=== PATIENT | male | born 1985 | race Caucasian/White ===

== ENCOUNTER 2022-02-25 16:55 | Emergency (ER) | payer SELFPAY ==
--- NOTE | 2022-02-25 17:13 | ER ---
Nurse's Notes [facility] Name: Santiago Jensen Age: 36 yrs Sex: Male : 1985 Arrival Date: 02/25/2022 Time: 16:57 Bed 2 Private MD: Diagnosis: Acute respiratory failure;Poisoning by other drugs, medicaments and biological substances, accidental (unintentional);Acidosis;Respiratory failure, unspecified with hypercapnia;Elevated white blood cell count;Acute kidney failure, unspecified;Hypokalemia Presentation: 02/25 16:51 Chief complaint: EMS states: family called for an overdose. Pt was found unresponsive ss at home by family, unknown as to what patient actually took. Narcan 1 mg given intranasally with no improvement. Additional Narcan 2 mg given IVP also without change. RSI initiated (Etomidate 20 mg, Rocuronium 75 mg IVP) and patient successfully intubated with 7.0 ET tube. Coronavirus screen: Client denies travel out of the [place] in the last 14 days. Ebola Screen: Patient denies exposure to infectious person. Patient denies travel to an Ebola-affected area in the 21 days before illness onset. Initial Sepsis Screen: Does the patient meet any 2 criteria? No. Patient's initial sepsis screen is negative. Does the patient have a suspected source of infection? No. Patient's initial sepsis screen is negative. Risk Assessment: Do you want to hurt yourself or someone else? Patient reports no desire to harm self or others. Onset of symptoms is unknown. Care prior to arrival: Oral airway placed, IV initiated. 18 GA, in the left antecubital area, Glucose check: 190 Oxygen administered. via AMBU bag. Activity prior to arrival: unresponsive. 16:51 Method Of Arrival: EMS: [facility] 16:51 Acuity: JUANY 1 ss Triage Assessment: 17:15 General: Appears in no apparent distress. jg9 17:15 General: Behavior is unresponsive. Pain: Unable to use pain scale. Patient is jg9 intubated. EENT: vomitus noted in mouth and nose. Neuro: Level of Consciousness is unresponsive. Cardiovascular: Rhythm is sinus rhythm. Respiratory: intubated 7.0 by ems. GI: vomitus noted in nose mouth and all over body. : No deficits noted. Derm: No deficits noted. Musculoskeletal: No deficits noted. Historical: - Allergies: 17:04 No Known Allergies; ss - PMHx: 17:04 Colitis; Gastroenteritis; Hernia; "mental issues"; ss - PSHx: 17:06 None; ss - Immunization history:: Adult Immunizations unknown. - Social history:: Smoking status: unknown. - Family history:: not pertinent. Screenin:27 Abuse screen: unable to complete. Nutritional screening: unable to complete. ss Tuberculosis screening:. 17:30 Fall Risk None identified. jg9 Assessment: 16:51 General: Behavior is unresponsive. Pain: Unable to use pain scale. Patient is ss unresponsive. Neuro: [place] Agitation-Sedation Scale (RASS): -5 Unarousable Level of Consciousness is unresponsive, Oriented to none. Neuro: Pupils are reactive to light. Cardiovascular: Pulses are palpable in right radial artery, right femoral artery, left radial artery and left femoral artery. Respiratory: Airway via oral intubation Trachea midline Respiratory effort is even, Respiratory pattern is regular, symmetrical. GI: Abdomen is non-distended. Derm: Skin is dry, Skin is pink, Skin temperature is warm. 17:46 Reassessment: ET tube advanced from initial 21 cm \\T\\ teeth to 24 cm by RT as requested ss by Dr. Rashid. Repeat XRAY has been ordered. Preparing patient to go to CT at this time. 18:00 Reassessment: No changes from previously documented assessment. Patient and/or family jg9 updated on plan of care and expected duration. Pain level reassessed. Patient is alert, oriented x 3, equal unlabored respirations, skin warm/dry/pink. 19:10 Reassessment: report called to Renetta at [facility] ICU 825. jg9 Overdose: 19:12 [place] Suicide Severity Screening: "In the past month, have you wished you were jg9 or wished you could go to sleep and not wake up?" Patient responds "yes." Based off client's responses, additional C-SSRS screening questions required. unable to complete patient is intubated "In the past month, have you actually had any thoughts of killing yourself?" intubated "In your lifetime, have you ever done anything, started to do anything, or prepared to do anything to end your life?" intubated. 19:25 [place] Suicide Severity Screening: "In the past month, have you actually had any jg9 thoughts of killing yourself?" Patient responds "yes." Based off client's responses, additional C-SSRS screening questions required. Vital Signs: 16:55 BP 154 / 107; Pulse 105; Resp 20; Temp 98.2(R); Pulse Ox 100% on 60% FiO2 ETT vent; ss 18:00 BP 155 / 108; Pulse 96; Pulse Ox 100% on ETT vent; jg9 18:11 Weight 77.11 kg; Height 6 ft. 1 in. (185.42 cm); jg9 18:58 BP 158 / 113; Pulse 98; Resp 20 A; Pulse Ox 100% on ETT vent; ss 19:00 BP 149 / 110; Pulse 96; Resp 20 A; Pulse Ox 100% on ETT vent; jg9 18:11 Body Mass Index 22.43 (77.11 kg, 185.42 cm) jg9 ED Course: 16:51 Arm band placed on right wrist. ss 16:57 Patient arrived in ED. keaton 16:57 Abel Rashid MD is Attending Physician. keaton 16:57 Maintain EMS IV. Dressing intact. Good blood return noted. Site clean \\T\\ dry. Gauge \\T\\ ss site: 18 gauge L AC. Flushed left antecubital. 17:05 Spaulding cath inserted, using sterile technique, 16 Fr., by me, balloon inflated, to ss gravity drainage, urine specimen collected. 17:10 NGT: inserted 16 Fr. via left nare. to intermittent suction. Returned gastric contents. ss 17:12 Triage completed. ss 17:14 XRAY Chest (1 view) In Process Unspecified. EDMS 17:27 Patient has correct armband on for positive identification. Placed in gown. Bed in low ss position. Call light in reach. Side rails up X2. Client placed on continuous cardiac and pulse oximetry monitoring. NIBP monitoring applied. resource program teacher on. Pulse ox on. Warm blanket given. 17:29 Joyce Medina, RN is Primary Nurse. jg9 17:43 initiated a transfer with URBAN Zimmer from the [facility] Transfer Center/ Scot DUGGAN all [facility] in our division is on ICU saturation and will have to decline the transfer. 17:45 initiated a transfer with Alejandro from the [facility] Transfer Center. She will check beds and eb call us back. 17:45 EKG done, by ED staff, reviewed by Abel Rashid MD. 3 17:46 Inserted saline lock: 18 gauge in right antecubital area, using aseptic technique. ss ,using aseptic technique. Insertion by Joyce Braga RN Blood collected. 17:[address] Harper the wood setter intervention teacher for [facility] with Dr. Rashid for patient eb transfer consultation. 17:[address] approval given to Dr. Rashid/ patient has been accepted to [facility] eb [facility] Bed 825/ Dr. Gil has accepted the patient in transfer/ report to be called to [phone]. 17:59 CT Head Brain wo Cont In Process Unspecified. EDMS 18:34 Chest Single View XRAY In Process Unspecified. EDMS 18:40 Inserted saline lock: 18 gauge in left forearm, using aseptic technique. jg9 20:14 No provider procedures requiring assistance completed. Patient transferred, IV remains kd3 in place. Administered Medications: 17:30 Drug: NS 0.9% 1000 ml Route: IV; Rate: 1000 ml; Site: left antecubital; jg9 18:57 Follow up: IV Status: Completed infusion; IV Intake: 1000ml jg9 17:35 Drug: Versed (midazolam) 4 mg Route: IVP; Site: left antecubital; jg9 19:23 Follow up: Response: No adverse reaction; RASS: Moderate sedation (-3) jg9 20:15 Follow up: Response: No adverse reaction kd3 17:40 Drug: Propofol 5 mcg/kg/min {Note: initiated at 15mcg/kg/min.} Route: IV; Rate: jg9 calculated rate; Site: right antecubital; 20:15 Follow up: IV Status: Infusion continued kd3 18:05 Drug: Charcoal (activated charcoal) Suspension 75 grams Route: PO; jg9 19:23 Follow up: Response: No adverse reaction jg9 20:15 Follow up: Response: No adverse reaction kd3 18:40 Drug: Zosyn (piperacillin-tazobactam) 3.375 grams Route: IVPB; Infused Over: 60 mins; jg9 Site: left forearm; 18:55 Drug: NS 0.9% 1000 ml Route: IV; Rate: 1 bolus; Site: left forearm; jg9 20:15 Follow up: Response: No adverse reaction; IV Status: Completed infusion kd3 19:04 Drug: Thiamine 100 mg Route: IV; Rate: per protocol; Site: left forearm; jg9 19:23 Follow up: Response: No adverse reaction jg9 20:14 Follow up: Response: No adverse reaction; IV Status: Completed infusion kd3 Medication: 17:21 VIS not applicable for this client. ss Intake: 18:57 IV: 1000ml; Total: 1000ml. jg9 Outcome: 17:12 ER care complete, transfer ordered by MD. pugh 20:14 Transferred by ground EMS kd3 20:14 Condition: stable 20:14 Discharge instructions given to patient, family, Instructed on the need for transfer, Demonstrated understanding of instructions. 20:15 Patient left the ED. kd3 Signatures: Dispatcher [employer] EDAbel Caraballo MD MD cha Smirch, Shelby, RN RN Yohana Pineda [facility] Nessa Hunter Kyli RN RN kd3 Joyce Medina RN RN jg9 Corrections: (The following items were deleted from the chart) 18:58 17:46 Reassessment: ET tube advanced from initial 21 cm \\T\\ teeth to 24 cm by RT as ss requested by Dr. Rashid
--- NOTE | 2022-02-25 17:13 | EDPHYS ---
Physician Documentation [facility] Name: Santiago Jensen Age: 36 yrs Sex: Male : 1985 Arrival Date: 02/25/2022 Time: 16:57 Bed 2 Private MD: ED Physician Abel Rashid HPI: 02/25 17:04 This 36 yrs old Male presents to ER via Unassigned with complaints of keaton Overdose. 17:04 The patient has shortness of breath. The patient has shortness of breath UNRESPONSIVE keaton AND AIRWAY NOT PROTECTED. Onset: The symptoms/episode began/occurred just prior to arrival. Duration: The symptoms are continuous, and are unchanged since they started. The patient's shortness of breath is aggravated by nothing, is alleviated by nothing. The patient presents to the emergency department after a known overdose. Context: Method: UNKNOWN. Associated signs and symptoms: The patient has no apparent associated signs or symptoms. Severity of symptoms: At their worst the symptoms were mild in the emergency department the symptoms are unchanged. Associated signs and symptoms: Pertinent positives: RESPIRATORY FAILURE. Historical: - Allergies: 17:04 No Known Allergies; ss - PMHx: 17:04 Colitis; Gastroenteritis; Hernia; "mental issues"; ss - PSHx: 17:06 None; ss - Immunization history:: Adult Immunizations unknown. - Social history:: Smoking status: unknown. - Family history:: not pertinent. ROS: 17:04 Constitutional: Negative for fever, chills, and weight loss, Eyes: Negative for injury, keaton pain, redness, and discharge, ENT: Negative for injury, pain, and discharge, Neck: Negative for injury, pain, and swelling, Cardiovascular: Negative for chest pain, palpitations, and edema, Respiratory: Negative for shortness of breath, cough, wheezing, and pleuritic chest pain, Abdomen/GI: Negative for abdominal pain, nausea, vomiting, diarrhea, and constipation, Back: Negative for injury and pain, : Negative for injury, bleeding, discharge, and swelling, MS/Extremity: Negative for injury and deformity, Skin: Negative for injury, rash, and discoloration, Psych: Negative for depression, anxiety, suicide ideation, homicidal ideation, and hallucinations, Allergy/Immunology: Negative for hives, rash, and allergies, Endocrine: Negative for neck swelling, polydipsia, polyuria, polyphagia, and marked weight changes, Hematologic/Lymphatic: Negative for swollen nodes, abnormal bleeding, and unusual bruising. 17:04 Neuro: Positive for syncope, UNRESPONSIVE AND INTUBATED. Exam: 17:04 Constitutional: The patient appears unkempt, INTUBATED [facility] 17:04 Eyes: Pupils: equal, round, and reactive to light and accomodation. 17:04 Cardiovascular: Rate: normal, Rhythm: regular, Pulses: Pulses are 4+ in bilateral radial, brachial, femoral, popliteal, posterior tibial and and dorsalis pedis arteries.. Heart sounds: normal, Edema: is not appreciated, JVD: is not appreciated. 17:53 ECG was reviewed by the Attending Physician. [facility] Vital Signs: 16:55 BP 154 / 107; Pulse 105; Resp 20; Temp 98.2(R); Pulse Ox 100% on 60% FiO2 ETT vent; ss 18:00 BP 155 / 108; Pulse 96; Pulse Ox 100% on ETT vent; jg9 18:11 Weight 77.11 kg; Height 6 ft. 1 in. (185.42 cm); jg9 18:58 BP 158 / 113; Pulse 98; Resp 20 A; Pulse Ox 100% on ETT vent; ss 19:00 BP 149 / 110; Pulse 96; Resp 20 A; Pulse Ox 100% on ETT vent; jg9 18:11 Body Mass Index 22.43 (77.11 kg, 185.42 cm) jg9 MDM: 16:57 Patient medically screened. [facility] 17:04 Antibiotic administration: ZOSYN. Differential diagnosis: polypharmacy, over keaton medication, hypoglycemia, closed head injury, intracranial hemorrhage, pneumonia, Psychogenic pulmonary edema, reactive airway disease, Sepsis Unstable Angina. The patient's Wells Deep Vein Thrombosis Score was calculated as follows: Total Score: 0-2 Pts- Low Risk. The patient's pulmonary embolism risk score was calculated as follows: Total Score: 0-2 points. This patient was found to be at low risk for a pulmonary embolism by using the Well's assessment criteria. Immunization status:. Data reviewed: vital signs, nurses notes, lab test result(s), EKG, radiologic studies, CT scan, plain films. Data interpreted: awake overnight monitor: rate is 88 beats/min, rhythm is regular, Pulse oximetry: on room air. Test interpretation: by ED physician or midlevel provider: ECG, plain radiologic studies. Counseling: I had a detailed discussion with the patient and/or guardian regarding: the historical points, exam findings, and any diagnostic results supporting the discharge/admit diagnosis, lab results, radiology results, the need to transfer to another facility, for higher level of care, [facility] does not immediately have the required specialist. 02/25 17:00 Order name: Basic Metabolic Panel; Complete Time: 17:46 [facility] 02/25 17:00 Order name: CBC with Diff; Complete Time: 17:41 [facility] 02/25 17:00 Order name: LFT's; Complete Time: 17:46 [facility] 02/25 17:00 Order name: Magnesium; Complete Time: 17:46 [facility] 02/25 17:00 Order name: NT PRO-BNP; Complete Time: 17:46 [facility] 02/25 17:00 Order name: PT-INR; Complete Time: 17:32 [facility] 02/25 17:00 Order name: Troponin HS; Complete Time: 17:46 [facility] 02/25 17:00 Order name: Blood Culture Adult (2) [facility] 02/25 17:00 Order name: Acetaminophen; Complete Time: 17:46 [facility] 02/25 17:00 Order name: ETOH Level; Complete Time: 17:32 [facility] 02/25 17:00 Order name: Ptt, Activated; Complete Time: 17:32 [facility] 02/25 17:00 Order name: Salicylate; Complete Time: 17:46 [facility] 02/25 17:00 Order name: Urine Drug Screen; Complete Time: 17:41 [facility] 02/25 17:00 Order name: ABG; Complete Time: 17:32 [facility] 02/25 17:00 Order name: XRAY Chest (1 view); Complete Time: 17:32 [facility] 02/25 17:00 Order name: EKG; Complete Time: 17:01 [facility] 02/25 17:00 Order name: Cardiac monitoring; Complete Time: 17:14 [facility] 02/25 17:00 Order name: EKG - Nurse/Tech; Complete Time: 18:13 [facility] 02/25 17:00 Order name: CT Head Brain wo Cont [facility] 02/25 17:00 Order name: SARS-COV-2 RT PCR (Document "Date of Onset" if Symptomatic) [facility] 02/25 17:14 Order name: Urine Dipstick-Ancillary; Complete Time: 17:32 EDMS 02/25 17:15 Order name: Lactate ll1 02/25 17:46 Order name: Chest Single View XRAY [facility] 02/25 17:00 Order name: IV Saline Lock; Complete Time: 17:24 [facility] 02/25 17:00 Order name: Labs collected and sent; Complete Time: 17:24 [facility] 02/25 17:00 Order name: O2 Per Protocol; Complete Time: 17:25 [facility] 02/25 17:00 Order name: O2 Sat Monitoring; Complete Time: 17:25 [facility] 02/25 17:00 Order name: Urine Dipstick-Ancillary (obtain specimen); Complete Time: 17:30 [facility] 02/25 17:17 Order name: Spaulding; Complete Time: 17:21 [facility] 02/25 17:19 Order name: NG Tube; Complete Time: 17:21 [facility] 02/25 17:28 Order name: IV Saline Lock - Large Bore; Complete Time: 17:30 [facility] 02/25 17:46 Order name: Misc. Order: ADVANCE ETT 2 CM; Complete Time: 18:13 [facility] EC:53 Rate is 102 beats/min. Rhythm is regular. QRS [place] is Normal. MT interval is normal. keaton QRS interval is normal. QT interval is normal. No Q waves. T waves are Normal. No ST changes noted. Clinical impression: NSR w/ Non-specific ST/T Changes and No evidence of ischemia. Interpreted by me. Reviewed by me. Administered Medications: 17:30 Drug: NS 0.9% 1000 ml Route: IV; Rate: 1000 ml; Site: left antecubital; jg9 18:57 Follow up: IV Status: Completed infusion; IV Intake: 1000ml jg9 17:35 Drug: Versed (midazolam) 4 mg Route: IVP; Site: left antecubital; jg9 19:23 Follow up: Response: No adverse reaction; RASS: Moderate sedation (-3) jg9 20:15 Follow up: Response: No adverse reaction kd3 17:40 Drug: Propofol 5 mcg/kg/min {Note: initiated at 15mcg/kg/min.} Route: IV; Rate: jg9 calculated rate; Site: right antecubital; 20:15 Follow up: IV Status: Infusion continued kd3 18:05 Drug: Charcoal (activated charcoal) Suspension 75 grams Route: PO; jg9 19:23 Follow up: Response: No adverse reaction jg9 20:15 Follow up: Response: No adverse reaction kd3 18:40 Drug: Zosyn (piperacillin-tazobactam) 3.375 grams Route: IVPB; Infused Over: 60 mins; jg9 Site: left forearm; 18:55 Drug: NS 0.9% 1000 ml Route: IV; Rate: 1 bolus; Site: left forearm; jg9 20:15 Follow up: Response: No adverse reaction; IV Status: Completed infusion kd3 19:04 Drug: Thiamine 100 mg Route: IV; Rate: per protocol; Site: left forearm; jg9 19:23 Follow up: Response: No adverse reaction jg9 20:14 Follow up: Response: No adverse reaction; IV Status: Completed infusion kd3 Disposition Summary: 02/25/22 17:12 Transfer Ordered Reason: Higher level of care keaton Condition: Serious keaton Problem: new keaton Symptoms: have improved keaton Transfer Location: [facility](02/25/22 18:26) Accepting Physician: Dr. Gil [facility] Elena(02/25/22 20:15) kd3 Diagnosis - Acute respiratory failure keaton - Poisoning by other drugs, medicaments and biological substances, accidental keaton (unintentional) - Acidosis keaton - Respiratory failure, unspecified with hypercapnia keaton - Elevated white blood cell count keaton - Acute kidney failure, unspecified keaton - Hypokalemia keaton Forms: - Medication Reconciliation Form keaton - SBAR form keaton Signatures: Dispatcher [employer] EDAbel Caraballo MD MD cha Smirch, Shelby RN RN Nessa Hunter Kyli, RN RN kd3 Joyce Medina RN RN jg9 Corrections: (The following items were deleted from the chart) 17:17 17:12 TO ICU , [facility] keaton keaton 17:47 17:17 TO ICU , [facility] keaton 18:26 17:12 [facility] keaton eb 18:26 17:47 TO ICU , [facility] keaton eb 19:00 17:00 Suicide Screening ([place]) ordered. keaton jg9 20:15 18:26 Dr. Gil [facility] Elena kd3
[2022-02-25 17:14] LABS: Urine Blood Negative (Negative); Urine Glucose Negative (Negative); Urine Protein 1+ (Negative); Urine Specific Gravity 1.025 (1.005-1.030); Urine pH 5.5 (5.0-7.0)
--- NOTE | 2022-02-25 17:19 | RAD REPORT ---
EXAM DESCRIPTION: RAD - Chest Single View - 02/25/2022 5:12 pm CLINICAL HISTORY: COUGH Chest pain. COMPARISON: Chest Single View dated 12/16/2016; Chest Single View dated 10/03/2016; Chest Single View dated 10/02/2016; ABDOMEN ACUTE SERIES dated 07/18/2015 FINDINGS: Portable technique limits examination quality. Linear opacities in left lung base likely represent subsegmental atelectasis. Lungs are otherwise chester ar. The heart is normal in size. Tip of the endotracheal tube is at the level clavicular heads. Enter ic tube tip is in the stomach.
[2022-02-25 17:25] LABS: Arterial Blood Carboxyhemoglob 2.3 % (0-1.5); Blood Gas Oxyhemoglobin 94.5 % (94-97); Blood O2 Saturation 98.1 % (92-98.5)
[2022-02-25 17:26] LABS: Protime INR 1.12
[2022-02-25] MEDS ORDERED: activated charcoaL 25 GM/120 ML TUBE ONE (17:30)
[2022-02-25] MEDS ORDERED: NA CHLORIDE 0.9% 100 ML ONE (17:30)
[2022-02-25] MEDS ORDERED: PIPERACIL/TAZO 3.375 GM VIAL IV ONE (17:30)
[2022-02-25] MEDS ORDERED: NA CHLORIDE 0.9% 1,000 ML ONE ×2 (17:30→18:58)
[2022-02-25 17:34] LABS: Absolute Lymphocytes (CBC) 1.4 K/uL (0.7-4.9); Lymphocytes % 9.3 % (15.3-44.8); RBC Red Blood Cell Count 4.82 M/uL (4.33-5.43)
[2022-02-25 17:36] LABS: Barbiturates NEGATIVE (NEGATIVE); Benzodiazepines POSITIVE (NEGATIVE); Cocaine NEGATIVE (NEGATIVE); METHAMPHETAM NEGATIVE (NEGATIVE); Methadone NEGATIVE (NEGATIVE); Opiates NEGATIVE (NEGATIVE); Phencyclidine NEGATIVE (NEGATIVE); THC Cannibis NEGATIVE (NEGATIVE)
[2022-02-25 17:36] LABS: ALT/SGPT 14 U/L (12-78); AST/SGOT 14 U/L (15-37); Albumin 4.3 g/dL (3.4-5.0); Alkaline Phosphatase 73 U/L (45-117); BUN Blood Urea Nitrogen 23 mg/dL (7-18); Bicarbonate 26 mmol/L (21-32); Bilirubin Direct 0.2 mg/dL (0-0.2); Bilirubin Total 0.9 mg/dL (0.2-1.0); Glomerular Filtration Rate 60 ml/min (=/>90); Glucose Level 162 mg/dL (74-106); Magnesium 2.2 mg/dL (1.8-2.4); NT PRO-BNP 5 pg/mL (<125); Potassium 3.3 mmol/L (3.5-5.1); Protein, Total 7.6 g/dL (6.4-8.2); Sodium Level 141 mmol/L (136-145); Troponin High Sensitivity 8.3 pg/mL (<58.9)
[2022-02-25] MEDS ORDERED: MIDAZOLAM HCL 2 MG/2 ML INJ ONE (17:38)
[2022-02-25] MEDS ORDERED: ACT CHARCOAL/SORB 50 GM/240ML ONE (17:49)
--- NOTE | 2022-02-25 18:06 | RAD REPORT ---
EXAM DESCRIPTION: CT - Head Brain Wo Cont - 02/25/2022 5:58 pm CLINICAL HISTORY: UNRESPONSIVE Headache, drowsiness COMPARISON: Head Brain Wo Cont dated 10/02/2016 TECHNIQUE: All CT scans are performed using dose optimization technique as appropriate and may inclu de automated exposure control or mA/KV adjustment according to patient size. FINDINGS: No intracranial hemorrhage, hydrocephalus or extra-axial fluid collection.No areas of brai n edema or evidence of midline shift. The paranasal sinuses and mastoids are clear. The calvarium is intact. IMPRESSION: No acute intracranial abnormality.
--- NOTE | 2022-02-25 18:39 | RAD REPORT ---
EXAM DESCRIPTION: RAD - Chest Single View - 02/25/2022 6:33 pm CLINICAL HISTORY: ETT Chest pain. COMPARISON: Chest Single View dated 02/25/2022; Chest Single View dated 12/16/2016; Chest Single View d ated 10/03/2016; Chest Single View dated 10/02/2016 FINDINGS: Portable technique limits examination quality. Tip of the ET tube is at the level of the superior aortic arch. Enteric tube descends the stomach. Mi ld atelectasis is present left lung base. Heart size is within normal range.
[2022-02-25] MEDS ORDERED: NA CHLORIDE 0.9% 500 ML ONE (18:58)
[2022-02-25] MEDS ORDERED: THIAMINE 200 MG/2 ML INJ ONE (19:08)
[2022-02-25] MEDS ORDERED: propofoL 1,000 MG/100 ML VIAL IV ONE (19:46)
[2022-02-25 20:41] VITALS: TEMP 98.2; O2SAT 100
[2022-02-25 20:47] VITALS: BP 149/110
--- NOTE | 2022-02-26 13:21 | EKG ---
Test Date: 2022-02-25 Test Time: 17:39:42 Lieutenant/Deputy: RONDA MEASUREMENT RESULTS: Intervals: Rate: 102 OK: 140 QRSD: 92 QT: 344 QTc: 448 [place]: P: 63 OK: 140 QRS: 47 T: 77 INTERPRETIVE STATEMENTS: Sinus tachycardia Nonspecific T wave abnormality Abnormal ECG Compared to ECG 12/16/2016 22:54:50 T-wave abnormality now present Sinus bradycardia no longer present Electronically Signed On 02-26-22 13:19:16 CDT by Edis Buckner
== END 2022-02-25 20:15 | disposition short-term general hospital (02) ==
LOC: ER 16:55
DX: J96.02 Acute respiratory failure with hypercapnia (principal); T50.991A Poisoning by other drugs, medicaments and biological substances, accidental (unintentional), initial encounter; E87.2 Acidosis; N17.9 Acute kidney failure, unspecified; D72.829 Elevated white blood cell count, unspecified; E87.6 Hypokalemia; Z20.822 Contact with and (suspected) exposure to COVID-19
CPT/HCPCS: 36415; 51702; 70450; 71045; 80048; 80076; 80307; 80320; 80329; 81003; 82805; 83605; 83735; 83880; 84484; 85025; 85610; 85730; 87040; 93005; 94002; 99285; J2250; J2543; J2704; J3411; J7030; J7040; U0003